=== PATIENT | male | born 1935 | race Caucasian/White ===

== ENCOUNTER 2020-05-16 11:27 | Inpatient (IN) | payer OTHER, MEDICAID, SELFPAY ==
[~2020-05-16] VITALS: Ht 167.6 cm; Wt 79.4 kg
--- NOTE | 2020-05-16 11:27 | NUR ---
PATIENT BIBA ALS TO ER BED 05
--- NOTE | 2020-05-16 11:46 | NUR ---
ERMD MADE AWARE OF PERSISTENT HYPOTENSION, 67/24, 76/28, 69/24, 71/32.
--- NOTE | 2020-05-16 11:50 | NUR ---
85 YO M FROM [facility] [place] WITH C/C OF 2 LARGE BLOOD CLOTS IN STOOL AT 0900 THIS MORNING. ERMD PERFORMED GUIAC TEST AT BEDSIDE IMMEDIATELY AND NOTED TRACE AMOUNTS OF BLOOD. PT VSS. DENIES N/V, BUT HAS ACTIVE DIARRHEA AND REPORTS OF +CDIFF, AFEBRILE. PT PLACED ON INSPECTOR GRAIN MILL PRODUCTS. BED LOCKED AND IN LOWEST POSITION. SIDE RAILS X2. MED HX: ESRD (SHUNT ON L UPPER ARM), CDIFF, HX OF PRIOR COVID +, STAGE 4 [facility], SEE PAPER CHART FOR FURTHER HX NKA
--- NOTE | 2020-05-16 12:00 | NUR ---
CHARISSED MADE AWARE THAT PT IS ANURIC DUE TO ESRD, UNABLE TO OBTAIN UA
[2020-05-16] MEDS ORDERED: NACL 0.9% 1,000 ML IV ONE ×2 (12:10→14:05)
--- NOTE | 2020-05-16 12:25 | NUR ---
DELAY IN IV DUE TO PT HARD STICK. LABS COLLECTED AND SENT TO LAB. BOLUS INITIATED
[2020-05-16 12:43] LABS: BASOPHILS # (AUTO) 0.1 K/uL (0.00-0.22); BASOPHILS % (AUTO) 0.6 % (0.0-2.0); EOSINOPHILS # (AUTO) 0.8 K/uL (0-0.4); LYMPHOCYTES # (AUTO) 1.3 K/uL (2.0-11.5); LYMPHOCYTES % (AUTO) 8.2 % (20.5-51.1); MEAN CORPUSCULAR HEMOGLOBIN 29 pg (27-31); MEAN CORPUSCULAR HGB CONC 32 g/dL (33-37); MEAN CORPUSCULAR VOLUME 91.6 fL (80-94); MONOCYTES # (AUTO) 0.6 K/uL (0.8-1.0); MONOCYTES % (AUTO) 3.9 % (1.7-9.3); NEUTROPHILS # (AUTO) 12.8 K/uL (1.8-7.7); NEUTROPHILS % (AUTO) 82.3 % (42.2-75.2); PLATELET COUNT (AUTO) 318 K/uL (140-450); RED BLOOD CELL COUNT(AUTO) 1.78 MIL/uL (4.20-6.10); RED CELL DISTRIBUTION WIDTH 15.4 % (11.6-13.7); WHITE BLOOD COUNT (AUTO) 15.6 K/uL (4.8-10.8)
--- NOTE | 2020-05-16 12:53 | NUR ---
RAD AT BEDSIDE
[2020-05-16 12:55] LABS: PROTHROMBIN TIME 10.8 secs (10.8-13.4)
[2020-05-16 13:00] LABS: ALBUMIN 1.7 g/dL (3.4-5.0); ANION GAP 14.1 (8-16); ASPARTATE AMINOTRANSFERASE 27 U/L (15-37); CARBON DIOXIDE 27.2 mmol/L (21-32); CHLORIDE 97 mmol/L (98-107); GLUCOSE 128 mg/dL (74-106); POTASSIUM 3.3 mmol/L (3.5-5.1); SODIUM SERUM 135 mmol/L (136-145); TOTAL BILIRUBIN 0.3 mg/dL (0.0-1.0); UREA NITROGEN, BLOOD 41 mg/dL (7-18)
[2020-05-16 13:02] LABS: CREATININE 6.7 mg/dL (0.6-1.3)
[2020-05-16 13:46] LABS: HEMATOCRIT 16.3 % (36-52); HEMOGLOBIN 5.1 g/dL (12.0-18.0)
[2020-05-16] MEDS ORDERED: PIPERACILLIN/TAZOBACTAM 3.375 GM in DEXTROSE 5% 50 ML IV ONE (14:20)
--- NOTE | 2020-05-16 14:20 | NUR ---
CHARISSED MADE AWARE OF PERSISTENT HYPOTENSION. /, 78/18
[2020-05-16] MEDS ORDERED: PIPERACILLIN/TAZOBACTAM 3.375 GM VIAL IV ONE (14:35)
--- NOTE | 2020-05-16 14:45 | NUR ---
CENTRAL LINE TRAY PLACED AT BEDSIDE FOR ERMD TO PLACE DUE TO HYPOTENSION
--- NOTE | 2020-05-16 15:00 | NUR ---
PT CLEANED AND RECTAL TUBE PLACED PER ERMD ORDER. SACRAL/BUTTOCK WOUND PHOTOS TAKEN.
--- NOTE | 2020-05-16 15:10 | NUR ---
ARCELIA CASTLE AND HANNAH MAI AT BEDSIDE PLACING CENTRAL LINE. GEODETIC TECHNICIAN/PULSE OX IN PLACE. BED LOCKED AND IN LOWEST POSITION.
[2020-05-16] MEDS ORDERED: DOCUSATE SODIUM 100 MG GELCAP PO PRN (15:20)
[2020-05-16] MEDS ORDERED: ACETAMINOPHEN 325 MG TAB PO PRN (15:20)
[2020-05-16] MEDS ORDERED: ZOLPIDEM 5 MG TAB PO PRN (15:20)
[2020-05-16] MEDS ORDERED: guaiFENesin DM 200/20 MG-10 ML 10 ML UDC PO PRN (15:20)
[2020-05-16] MEDS ORDERED: HYDROcodone/APAP 7.5/325 MG 1 TAB PO PRN (15:20)
[2020-05-16] MEDS ORDERED: ONDANSETRON 4 MG/2 ML VIAL IM/IVP PRN (15:20)
--- NOTE | 2020-05-16 16:56 | NUR ---
CALLED LAB TO CHECK ON STATUS OF ORDERED PACKED CELLS, STATED BLOOD IS READY TO TRANSFUSE
[2020-05-16] MEDS ORDERED: NOREPINEPHRINE 8 MG in DEXTROSE 5% 250 ML IV PRN (17:05)
--- NOTE | 2020-05-16 17:30 | NUR ---
HOLDING PRN LEVOPHED TO SEE IF BP IMPROVES AFTER BLOOD TRANSFUSION. MADE AWARE.
--- NOTE | 2020-05-16 17:30 | NUR ---
Consent signed per PATIENT agreeing to administration of blood. Blood has been type and crossmatched. Blood sent from blood bank. Information on unit of blood checked against patient wristband at bedside by two nurses. All information matches. Patient or responsible republican informed of potential complications associated with blood transfusion. Informed of possible transfusion reaction symptoms. Aware of need to notify nurse at once of itching, shortness of breath, flushing, feeling of impending doom, or other symptoms not previously present. Vital signs taken within 5 minutes prior to initiation of transfusion. RN will remain with patient for first 15 minutes of transfusion at which time vital signs will be re-assessed.
--- NOTE | 2020-05-16 17:30 | NUR ---
SEE BLOOD TRANSFUSION SHEET FOR TRANSFUSION VS
--- NOTE | 2020-05-16 19:20 | NUR ---
REPORT GIVEN TO ERVIN KUMARI. TRANSFER OF CARE AT THIS TIME.
--- NOTE | 2020-05-16 19:28 | NUR ---
Report received from ERVIN Morrison for continuation of care.
--- NOTE | 2020-05-16 19:45 | NUR ---
BLOOD TRANSFUSION OF FIRST UNIT COMPLETED. NO REACTION NOTED. VSS.
--- NOTE | 2020-05-16 19:55 | NUR ---
SECOND UNIT OF BLOOD PICKED UP FROM LAB AT THIS TIME.
--- NOTE | 2020-05-16 20:12 | NUR ---
Consent signed per patietn agreeing to administration of blood. Blood has been type and crossmatched. Blood sent from blood bank. Information on unit of blood checked against patient wristband at bedside by two nurses. All information matches. Patient or responsible constitution party informed of potential complications associated with blood transfusion. Informed of possible transfusion reaction symptoms. Aware of need to notify nurse at once of itching, shortness of breath, flushing, feeling of impending doom, or other symptoms not previously present. Vital signs taken within 5 minutes prior to initiation of transfusion. RN will remain with patient for first 15 minutes of transfusion at which time vital signs will be re-assessed.
--- NOTE | 2020-05-16 20:22 | NUR ---
DELAY IN ADMINISTERING MEDICATIONS - PT HAVE ONLY 1 IV ACCESS AND BLOOD TRANSFUSION IS RUNNING AT THIS TIME.
[2020-05-16 20:27] LABS: CHOL/HDL RATIO 6.3 (1-4.5); MAGNESIUM 1.9 mg/dL (1.8-2.4)
[2020-05-16 21:00] LABS: PHOSPHORUS 2.9 mg/dL (2.5-4.9)
--- NOTE | 2020-05-16 21:30 | NUR ---
XRAY AT BEDSIDE.
--- NOTE | 2020-05-16 21:46 | NUR ---
PT RESTING LEFT LATERALLY , RR EVEN AND UNLABORED, BED LOCKED AND IN LOWEST POSITION, SIDE RAIL X2 FOR PT SAFETY. NO ACUTE DISTRESS NOTED. VSS.
--- NOTE | 2020-05-16 22:21 | NUR ---
PT RESTING LT LATERALLY , VISIBLE RISE AND FALL OF CHEST, RR EVEN AND UNLABORED. NO ACUTE DISTRESS NOTED. VSS.
[2020-05-16] MEDS ORDERED: SERT50TA PO (22:39)
[2020-05-16] MEDS ORDERED: ASPI-1822 PO (22:39)
[2020-05-16] MEDS ORDERED: ATOR20TA40 PO (22:39)
[2020-05-16] MEDS ORDERED: CARV12.5 PO (22:39)
[2020-05-16] MEDS ORDERED: [UNRECOGNIZED DRUG - CODE] PO (22:39)
[2020-05-16] MEDS ORDERED: LEVO0.0216 PO (22:39)
[2020-05-16] MEDS ORDERED: PANT40EC PO (22:39)
[2020-05-16] MEDS ORDERED: SENN-72 PO (22:39)
[2020-05-16] MEDS ORDERED: MEGE20TA PO (22:39)
[2020-05-16] MEDS ORDERED: CHOL1TAB11 PO (22:39)
[2020-05-16] MEDS ORDERED: FINA5TAB1 PO (22:39)
[2020-05-16] MEDS ORDERED: ATRN INH (22:39)
[2020-05-16] MEDS ORDERED: MULT-1469 PO (22:39)
[2020-05-16] MEDS ORDERED: PIPERACILLIN/TAZOBACTAM 2.25 GM VIAL IV ONE (22:47)
--- NOTE | 2020-05-16 22:50 | NUR ---
BLOOD TRANSFUSION COMPLETED , NO REACTION TO TRANSFUSION. VSS.
[2020-05-16] MEDS: PIPERACILLIN/TAZOBACTAM 2.25 GM in DEXTROSE 5% 50 ML IV SCH (22:59)
[2020-05-16] MEDS: DEXT 5% /NACL 0.9% 1,000 ML IV SCH (23:33)
--- NOTE | 2020-05-16 23:33 | NUR ---
PT RESTING IN BED, LOCKED AND IN LOWEST POSITION , HOB ELEVATED, SIDE RAIL X2. VISIBLE RISE AND FALL OF CHEST. VSS. NO ACUTE DISTRESS NOTED.
--- NOTE | 2020-05-17 00:51 | NUR ---
pt resting in bed, locked and in lowest position ,hob elevated, side rail x2 for pt safety. No acute distress noted. VSS.
--- NOTE | 2020-05-17 02:07 | NUR ---
pt resting in bed, locked and in lowest position, hob elevated , side rail x2 for pt safety. No acute distress noted. vss.
--- NOTE | 2020-05-17 03:05 | NUR ---
PT RESTING IN BED, LOCKED AND IN LOWEST POSITION ,HOB ELEVATED, SIDE RAIL X2. VSS. NO ACUTE DISTRESS.
[2020-05-17] MEDS: DEXT 5% /NACL 0.9% 1,000 ML IV SCH ×2 (03:50→16:22)
--- NOTE | 2020-05-17 04:30 | NUR ---
PT RESTING RT LATERALLY , HOB ELEVATED, SIDE RAIL X2. NO ACUTE DISTRESS NOTED.
--- NOTE | 2020-05-17 05:00 | NUR ---
MRSA SWAB COLLECTED AND WALKED TO LAB.
[2020-05-17] MEDS ORDERED: PIPERACILLIN/TAZOBACTAM 2.25 GM VIAL IV ONE ×3 (05:24→21:52)
[2020-05-17] MEDS: PIPERACILLIN/TAZOBACTAM 2.25 GM in DEXTROSE 5% 50 ML IV SCH ×3 (05:32→21:55)
--- NOTE | 2020-05-17 06:15 | NUR ---
PT RESTING IN BED, LOCKED AND IN LOWEST POSITION, HOB ELEVATED, SIDE RAIL X2 FOR PT SAFETY. NO ACUTE DISTRESS NOTED. VSS.
--- NOTE | 2020-05-17 07:28 | NUR ---
REPORT GIVEN TO ERVIN CRAWLEY FOR TRANSFER OF CARE.
--- NOTE | 2020-05-17 07:30 | NUR ---
RECIEVED REPORT FROM ERVIN KUMARI. TRANSFER OF CARE AT THIS TIME.
[2020-05-17] MEDS: LACTULOSE 20 GM/30 ML UDC PO SCH ×2 (09:00→21:55)
[2020-05-17] MEDS: PANTOPRAZOLE 40 MG TABEC PO SCH (09:00)
[2020-05-17] MEDS: SENNA 8.6 MG TAB PO SCH ×3 (09:00→17:00)
[2020-05-17 09:11] LABS: BASOPHILS # (AUTO) 0.1 K/uL (0.00-0.22); BASOPHILS % (AUTO) 0.6 % (0.0-2.0); EOSINOPHILS # (AUTO) 0.8 K/uL (0-0.4); EOSINOPHILS % (AUTO) 6.5 % (0.0-4.0); HEMATOCRIT 23.4 % (36-52); HEMOGLOBIN 7.6 g/dL (12.0-18.0); LYMPHOCYTES # (AUTO) 0.9 K/uL (2.0-11.5); MEAN CORPUSCULAR HEMOGLOBIN 30 pg (27-31); MEAN CORPUSCULAR HGB CONC 33 g/dL (33-37); MEAN CORPUSCULAR VOLUME 90.6 fL (80-94); MONOCYTES # (AUTO) 0.5 K/uL (0.8-1.0); NEUTROPHILS # (AUTO) 9.8 K/uL (1.8-7.7); PLATELET COUNT (AUTO) 276 K/uL (140-450); RED BLOOD CELL COUNT(AUTO) 2.58 MIL/uL (4.20-6.10); RED CELL DISTRIBUTION WIDTH 14.7 % (11.6-13.7); WHITE BLOOD COUNT (AUTO) 12.1 K/uL (4.8-10.8)
[2020-05-17 09:46] LABS: ANION GAP 16.4 (8-16); CHLORIDE 100 mmol/L (98-107); GLUCOSE 102 mg/dL (74-106); POTASSIUM 3.4 mmol/L (3.5-5.1); SODIUM SERUM 137 mmol/L (136-145); UREA NITROGEN, BLOOD 44 mg/dL (7-18)
[2020-05-17 10:30] LABS: LYMPHOCYTES % (AUTO) 7.7 % (20.5-51.1); NEUTROPHILS % (AUTO) 81.2 % (42.2-75.2)
[2020-05-17 10:37] LABS: CREATININE 7.3 mg/dL (0.6-1.3)
--- NOTE | 2020-05-17 11:22 | NUR ---
ERMD AT BEDSIDE PLACING ULTRA SOUND GUIDED IV
--- NOTE | 2020-05-17 12:00 | NUR ---
PT REPOSITIONED FOR COMFORT TO RIGHT SIDE. ALL PT NEEDS MET AT THIS TIME. BED LOCKED AND IN LOWEST POSITION. MEDICAL BILLING AND CODING INSTRUCTOR/PULSE OX IN PLACE.
--- NOTE | 2020-05-17 13:00 | NUR ---
DR. RIZO MADE AWARE THAT PTS IV INFILTRATED AND UNABLE TO PLACE ANOTHER IV LINE. MULTIPLE ATTEMPTS MADE BY ERMD WITH ULTRASOUND. VERBAL PICC LINE ORDER MADE. DR. RIZO MADE AWARE UNABLE TO GIVE IV POTASSIUM ORDER DUE TO NO IV, GAVE VERBAL ORDER TO GIVE 40 MEQ LIQUID ONCE TODAY.
[2020-05-17] MEDS ORDERED: POTASSIUM CHLORIDE 20% 40 MEQ/15 ML UDC PO SCH (14:00)
--- NOTE | 2020-05-17 14:23 | NUR ---
PICC LINE NURSE AT BEDSIDE PLACING R UPPER ARM MIDLINE
--- NOTE | 2020-05-17 15:02 | NUR ---
CALLED PHARMACY TO OBTAIN PRN POTASSIUM IV
--- NOTE | 2020-05-17 16:00 | NUR ---
PT REPOSITIONED FOR COMFORT TO LEFT SIDE. ALL PT NEEDS MET AT THIS TIME. BED LOCKED AND IN LOWEST POSITION. AUTO BODY MECHANIC APPRENTICE/PULSE OX IN PLACE.
--- NOTE | 2020-05-17 17:00 | NUR ---
DR. RIZO STATES TO DOWNGRADE PT TO TELE DUE TO IMPROVEMENT IN HYPOTENSION AND NOT NEEDING ORDERED LEVOPHED.
[2020-05-17] MEDS: POTASSIUM CHLORIDE 40 MEQ, LIDOCAINE MPF 1% 25 MG in NACL 0.9% 250 ML IV PRN (17:05)
--- NOTE | 2020-05-17 18:00 | NUR ---
PT REPOSITIONED FOR COMFORT TO RIGHT SIDE. ALL PT NEEDS MET AT THIS TIME. BED LOCKED AND IN LOWEST POSITION. LUMBER CHAIN OFFBEARER/PULSE OX IN PLACE.
--- NOTE | 2020-05-17 19:27 | NUR ---
REPORT GIVEN TO ERVIN GAUTAM. TRANSFER OF CARE AT THIS TIME.
--- NOTE | 2020-05-17 19:30 | NUR ---
RECEIVED REPORT FROM DENISA MUELLER
--- NOTE | 2020-05-17 20:00 | NUR ---
PT RESTING IN BED, REMAINS ON BEDSIDE MONITOR. V/S REMAIN WNL
--- NOTE | 2020-05-17 20:40 | NUR ---
PT ARRIVED FROM ED TO UNIT VIA GURNEY. PT AAOX4 AND ABLE TO MAKE NEEDS KNOWN, CALM AND COOPERATIVE TO CARE. RESPIRATIONS EVEN AND UNLABORED TO ROOM AIR. ABDOMEN IS SOFT AND NON-TENDER, RECTAL TUBE IN PLACE. SKIN IS WARM AND DRY. PT WITH PRESSURE ULCER ON SACRUM AND BUTTOCKS, DRESSING DRY AND INTACT. PT WITH RIGHT UPPER ARM MIDLINE IN PLACE. PT ALSO WITH LEFT ARM AV SHUNT, ARM PRECAUTION IN PLACE. PT DENIES ANY PAIN OR DISCOMFORT AT THIS TIME. NO REQUESTS MADE. PT KEPT COMFORTABLE. VS TAKEN, MRSA SWAB COLLECTED. PT WELCOMED AND ORIENTED TO ROOM. PT KEPT COMFORTABLE. SAFETY MEASURES IN PLACE, CALL LIGHT WITHIN REACH, WILL CONTINUE TO MONITOR.
--- NOTE | 2020-05-17 20:50 | NUR ---
Patient will be admitted to care of DR RIZO. Admited to TELE. Will go to room 107A. Belongings list completed. Report to SAFIA MUELLER.
[2020-05-17 23:00] VITALS: BP 159/68
--- NOTE | 2020-05-18 00:06 | NUR ---
VS STABLE. PERINEAL CARE DONE WITH SUPERVISOR PIG MACHINE. WOUND CARE DONE WELL. PT TOLERATE WELL. PT TURNED WELL. PT KEPT COMFORTABLE. SAFETY MEASURES IN PLACE. CALL LIGHT WITHIN REACH. WILL CONTINUE TO MONITOR.
[2020-05-18 00:43] VITALS: BP 133/55
--- NOTE | 2020-05-18 00:45 | NUR ---
PROVIDED WOUND CARE Addendum: 05/19/20 at 5766 by Eloy Pineda RN WRONG TIME
--- NOTE | 2020-05-18 02:17 | NUR ---
RECEIVED REPORT FROM SAFIA FOR CONTINUITY OF CARE. PATIENT IS SLEEPING AROUSABLE BY NAME AND TOUCHED. RESPIRATION EVEN UNLABORED ON ROOM AIR. NO DISTRESS NOTED. SKIN IS WARM AND DRY. PATIENT HAS A PRESSURE ULCER ON THE SACRAL AREA. NADIRA MIDLINE NOTED PATENT AND INTACT. RECTAL TUBE NOTED DRAINING YELLOWISH GREEN LIQUID STOOL. ALL SAFETY MEASURES IN PLACE. BED IS AT LOW POSITION. CALL LIGHT WITHIN REACH. WILL CONTINUE TO MONITOR.
--- NOTE | 2020-05-18 03:01 | NUR ---
MADE ROUNDS. PATIENT SLEEPING RESPIRATION EVEN UNLABORED ON ROOM AIR. NO DISTRESS NOTED. WILL CONTINUE TO MONITOR.
[2020-05-18 04:00] VITALS: BP 155/70
--- NOTE | 2020-05-18 05:03 | NUR ---
VS STABLE. PERINEAL CARE, CATHETER CARE DONE. PT TURNED AFTERWARDS. PT TOLERATED CARE PROVIDED. PT NOT IN DISTRESS. SAFETY MEASURES IN PLACE. CALL LIGHT WITHIN REACH. WILL CONTINUE TO MONITOR.
[2020-05-18] MEDS: DEXT 5% /NACL 0.9% 1,000 ML IV SCH ×2 (05:42→17:09)
[2020-05-18] MEDS: PIPERACILLIN/TAZOBACTAM 2.25 GM in DEXTROSE 5% 50 ML IV SCH ×3 (05:43→21:21)
[2020-05-18] MEDS ORDERED: PIPERACILLIN/TAZOBACTAM 2.25 GM VIAL IV ONE (05:45)
--- NOTE | 2020-05-18 07:51 | NUR ---
ENDORSED TO DAY SHIFT NURSE FOR CONTINUITY OF CARE
--- NOTE | 2020-05-18 08:32 | NUR ---
RECIEVED PATEINT RESTING COMFORTABLY, PRESENTS CALM AND COOPERATIVE, NO S/SX OF PAIN OR DISCOMFORT. RESPIRATIONS ARE NON-LABORED. SKIN IS CLEAN, WARM AND DRY TO TOUCH. IV ACCESS IS PATENT, DRY AND INTACT. BED IS LOCKED IN LOWEST POSITION, CALL LIGHT IN REACH. NURSE WILL MONITOR FOR CHANGES IN STATUS.
[2020-05-18] MEDS: LACTULOSE 20 GM/30 ML UDC PO SCH ×2 (08:47→21:21)
[2020-05-18] MEDS: SENNA 8.6 MG TAB PO SCH ×3 (08:50→17:00)
[2020-05-18] MEDS: PANTOPRAZOLE 40 MG TABEC PO SCH (08:50)
--- NOTE | 2020-05-18 08:51 | NUR ---
PATIENT HAS BEEN SCREENED AND CATEGORIZED HIGH NUTRITION RISK. PATIENT WILL BE SEEN WITHIN 1-2 DAYS OF ADMISSION. 05/18/[address]
[2020-05-18 09:00] LABS: ANION GAP 18.6 (8-16); CHLORIDE 103 mmol/L (98-107); GLUCOSE 92 mg/dL (74-106); POTASSIUM 3.6 mmol/L (3.5-5.1); SODIUM SERUM 139 mmol/L (136-145); UREA NITROGEN, BLOOD 47 mg/dL (7-18)
[2020-05-18 09:07] LABS: T4 (THYROXINE) 3.7 ug/dL (4.5-12.0)
[2020-05-18 09:23] LABS: BASOPHILS # (AUTO) 0.1 K/uL (0.00-0.22); BASOPHILS % (AUTO) 0.9 % (0.0-2.0); EOSINOPHILS # (AUTO) 0.6 K/uL (0-0.4); EOSINOPHILS % (AUTO) 4.7 % (0.0-4.0); HEMATOCRIT 21.3 % (36-52); HEMOGLOBIN 7.2 g/dL (12.0-18.0); LYMPHOCYTES # (AUTO) 0.9 K/uL (2.0-11.5); LYMPHOCYTES % (AUTO) 6.9 % (20.5-51.1); MEAN CORPUSCULAR HEMOGLOBIN 30 pg (27-31); MEAN CORPUSCULAR HGB CONC 34 g/dL (33-37); MEAN CORPUSCULAR VOLUME 89.7 fL (80-94); MONOCYTES # (AUTO) 0.5 K/uL (0.8-1.0); NEUTROPHILS # (AUTO) 11.4 K/uL (1.8-7.7); NEUTROPHILS % (AUTO) 83.5 % (42.2-75.2); PLATELET COUNT (AUTO) 308 K/uL (140-450); RED BLOOD CELL COUNT(AUTO) 2.38 MIL/uL (4.20-6.10); RED CELL DISTRIBUTION WIDTH 14.9 % (11.6-13.7); WHITE BLOOD COUNT (AUTO) 13.7 K/uL (4.8-10.8)
[2020-05-18 09:47] LABS: CREATININE 8.2 mg/dL (0.6-1.3)
--- NOTE | 2020-05-18 12:08 | NUR ---
PATIENT RESTING COMFORTABLY, NO S/SX OF PAIN OR DISCOMFORT. REPIRATIONS ARE NON-LABORED. SKIN IS CLEAN, WARM AND DRY TO TOUCH. IV ACCESS IS PATENT, DRY AND INTACT. BED IS LOCKED IN LOWEST POSITION, CALL LIGHT IN REACH. NURSE WILL CONTINUE TO MONITOR FOR CHANGES IN STATUS.
--- NOTE | 2020-05-18 12:21 | NUR ---
SOCIAL WORK NOTE: Patient's Orientation Unable To Assess Information Provided By RANDY COX - KISHORE Comments SW WAS UNABLE TO MEET PATIENT AT BEDSIDE DUE TO MEDICAL CONDITION. SW COMPLETED ASSESSMENT WITH PATIENT'S SON. Dividing Machine Operator Helper, Realtionship and Phone Number RANDY NOVAK [phone] Healthcare Power of Post Anesthesia Room Nurse No Does Patient Have a POLST No Identifying Problems No Social Work Triggers Is A Social Work Consult Needed No Mandate Report Filed No Explanation Of Identifying Problems PATIENT IS AN 85-YEAR-OLD MALE ADMITTED FOR GI BLEED, SEPSIS, AND ANEMIA. PATIENT HAS PMHX OF HYPERTENSION, ESRD ON DIALYSIS. PATIENT IS A SKILLED PATIENT AT [facility] [place] BUT RESIDES AT [address] [facility] [place] [address]. Admitted From Long-Term Facility Long-Term Facility [facility] - [phone] Pre-Admission Level Of Functioning Status Total Care Prior Resources/Services Used In Last 12 Months SNF Rehab/Skilled Prior Resources/Service Comments PATIENT IS SKILLED AND ON A BED HOLD. Prior DME Wheelchair Dialysis Hemodialysis Name And Phone Number of Dialysis Facility [facility] M W ESRD Outpatient Time 1400 Living Situation Lives With Family House Other Living Situation/Comment PATIENT RESIDES WITH FAMILY AT [address] [facility] [place] [place] [address] Home Support No Caregiver Issues Financial Issues No Known Financial Issue Referral To The Financial Counselor Needed No Factors/Needs No D/C Needs Identified Pt/Rep Participated In Discharge Plan Yes Patient/Family Agress With Discharge Plan Yes Discharge Plan Comments TENTATIVE DISCHARGE PLAN IS FOR PATIENT TO RETURN TO [facility] [place]. DC Plan Status Initiated
--- NOTE | 2020-05-18 12:38 | NUR ---
WOUND CARE EVALUATION NOTE: PT. ADMITTED WITH GI BLEEDING AND SACRAL COCCYX STAGE 4 PRESSURE INJURY. PT. IS AAX3 FOLLOW DIRECTIONS TO TURN AND REPOSITION, RECTAL TUBE IN PLACE WITH MODERATE AMOUNT STOOL OUTPUT OBSERVED. SKIN IS WARM AND DRY, BLE HAIR NO GROWTH, NO EDEMA. DORSAL PEDAL PULSES PRESENT AND NORMAL. CAPILLARY REFILLED < 2 SEC. X 10 TOES. -SACRALCOCCYX PRESSURE INJURY STAGE 4, WOUND BED [id number] 30% SOFT YELLOW SLOUGH TISSUE WITH 70% GRANULATING TISSUE, MODERATE AMOUNT SEROUS DRAINAGE, NO ODOR, BRENDA WOUND SKIN NEWLY HEALING SCARS -RIGHT AND LEFT INNER BUTTOCKS MAD SKIN DENUDED, MULTIPLE SUPERFICIAL EROSIONS -BILATERAL HEELS BLANCHABLE REDNESS RECOMMENDATIONS: -APPLY THIN LAYER OF Z GUARD TO R/L INNER BUTTOCKS BID AND PRN IF SOILING -CLEANSE SACRALCOCCYX WITH WOUND CLEANSING SOLUTION, PACK WOUND WITH ALGINATE DRESSING AND APPLY THIN LAYER Z-GUARD TO PER-WOUND SKIN COVER WITH DRY DRESSING QD AND PRN IF SOILING -APPLY HEEL PROTECTORS TO BOTH HEELS AT ALL TIMES -OFFLOAD BILATERAL HEELS BY PLACING PILLOWS UNDER CALVES UNLESS OTHERWISE CONTRAINDICATED -PRESSURE REDISTRIBUTION SURFACE THERAPY -TURN AND REPOSITION Q2H, OFFLOAD SACRALCOCCYX AND BUTTOCKS BY TURNING RIGHT AND LEFT -CONTINUE TO FOLLOW RD RECOMMENDATIONS ALL ABOVE RECOMMENDATIONS DISCUSSED WITH PRIMARY RN. PLEASE CONTACT WOUND CARE NURSE FOR ANY QUESTION AND CHANGE OF WOUND CONDITION
[2020-05-18] MEDS: Z-GUARD PASTE TP SCH (13:00)
[2020-05-18] MEDS: ALGINATE DRESSING MC SCH (13:00)
--- NOTE | 2020-05-18 15:50 | NUR ---
05/18/20 RD INITIAL ASSESSMENT COMPLETED PLEASE REFER TO NUTRITION ASSESSMENT UNDER CARE ACTIVITY FOR ESTIMATED NUTRITIONAL NEEDS. 1. CONTINUE NPO 2. RECOMMEND VITAMIN C 500 MG AND ZINC 220 MG DAILY X 14 DAYS FOR WOUND HEALING 3. IF/WHEN MEDICALLY STABLE ADVANCE DIET TOLERATED 4. RD TO FOLLOW-UP 2-3 DAYS, HIGH RISK MANAS GREWAL RD
[2020-05-18 18:35] VITALS: BP 152/60
--- NOTE | 2020-05-18 19:05 | NUR ---
PATIENT RESTING COMFORTABLY, NO C/O PAIN OR DISCOMFORT. RESPIRATIONS ARE NON-LABORED. SKIN IS CLEAN WARM AND DRY TO TOUCH. IV ACCESS IS PATENT, DRY AND INTACT. BED IS LOCKED IN LOWEST POSITION, CALL LIGHT IN REACH. PATIENT ENDORSED TO CURTAIN WORKER NURSE.
--- NOTE | 2020-05-18 19:35 | NUR ---
RECEIVED BEDSIDE REPORT FROM DAY KEN JORDAN. PATIENT IS AWAKE AND ALERT. RESPIRATION EVEN UNLABORED ON ROOM AIR. NO DISTRESS NOTED. SKIN IS WARM AND DRY. SACRAL ULCER NOTED. RIGHT UPPER ARM MIDLINE NOTED PATENT AND INTACT. RECTAL TUBE NOTED DRAINING GREENISH SOFT TO LIQUID STOOL NOTED. PLAN OF CARE WAS DISCUSSED ALL SAFETY MEASURES IN PLACE. BED IS AT LOW POSITION. CALL LIGHT WITHIN REACH. WILL CONTINUE TO MONITOR.
[2020-05-18 20:00] VITALS: BP 161/52
--- NOTE | 2020-05-18 21:20 | NUR ---
ALL SCHEDULED MEDS WERE GIVEN PER ORDER. WILL CONTINUE TO MONITOR.
[2020-05-18] MEDS ORDERED: SENNA 8.6 MG TAB PO SCH (22:00)
[2020-05-18] MEDS ORDERED: MAGNESIUM CITRATE 300 ML BTL PO SCH (22:00)
--- NOTE | 2020-05-18 22:40 | NUR ---
ADMINISTER CITROMA AND SENNA FOR BOWEL PREP PROCEDURE PER DR. HUFF ORDER
[2020-05-19] VITALS: BP 130/62
--- NOTE | 2020-05-19 00:45 | NUR ---
PROVIDED WOUND CARE
[2020-05-19] MEDS: Z-GUARD PASTE TP SCH ×2 (01:00→15:00)
--- NOTE | 2020-05-19 01:24 | NUR ---
MADE ROUNDS. PATIENT IS AWAKE RESPIRATION EVEN UNLABORED ON ROOM AIR. NO DISTRESS NOTED. WILL CONTINUE TO MONITOR
[2020-05-19 04:20] VITALS: BP 165/58
--- NOTE | 2020-05-19 05:18 | NUR ---
PATIENT ONLY DRINK HALF OF CITROMA. STOOL COLOR BROWNISH YELLOW SOFT TO LIQUID TEXTURE. ENCOURAGED PATIENT TO DRINK IT ALL. PATIENT REFUSED. EDUCATED THE PURPOSE STILL REFUSED. WILL NOTIFY DOCTOR.
[2020-05-19] MEDS: PIPERACILLIN/TAZOBACTAM 2.25 GM in DEXTROSE 5% 50 ML IV SCH ×3 (05:48→21:10)
[2020-05-19] MEDS: DEXT 5% /NACL 0.9% 1,000 ML IV SCH (05:50)
--- NOTE | 2020-05-19 06:00 | NUR ---
ASK PATIENT AGAIN REGARDING CITROMA. PATIENT FINALLY AGREED TO DRINK THE MEDICATION. WILL CONTINUE TO MONITOR
--- NOTE | 2020-05-19 07:11 | NUR ---
ENDORSED PATIENT TO DAY SHIFT NURSE FOR CONTINUITY OF CARE.
--- NOTE | 2020-05-19 07:35 | NUR ---
RECEIVED PATIENT IN BED RESTING COMFORTABLY, PATIENT PRESENTS CALM AND COOPERATIVE. NO S/SX OF PAIN OR DISCOMFORT OBSERVED NOR REPORTED. RESPIRATIONS ARE NON-LABORED. SKIN IS CLEAN, WARM AND DRY TO TOUCH. IV ACCESS IS PATENT, DRY AND INTACT. RECTAL TUBE IS SECURED. PATIENT IS NPO STATUS. BED IS LOCKED IN LOWEST POSITION, CALL LIGHT IN REACH. NURSE WILL CONTINUE TO MONITOR FOR CHANGES IN STATUS
[2020-05-19] MEDS: LACTULOSE 20 GM/30 ML UDC PO SCH (08:04)
[2020-05-19] MEDS: PANTOPRAZOLE 40 MG TABEC PO SCH (08:05)
[2020-05-19] MEDS: SENNA 8.6 MG TAB PO SCH ×2 (08:05→12:00)
[2020-05-19 08:36] LABS: BASOPHILS # (AUTO) 0.2 K/uL (0.00-0.22); BASOPHILS % (AUTO) 1.3 % (0.0-2.0); EOSINOPHILS # (AUTO) 0.6 K/uL (0-0.4); EOSINOPHILS % (AUTO) 4.9 % (0.0-4.0); HEMATOCRIT 21.7 % (36-52); HEMOGLOBIN 7.1 g/dL (12.0-18.0); LYMPHOCYTES # (AUTO) 1.1 K/uL (2.0-11.5); LYMPHOCYTES % (AUTO) 9.6 % (20.5-51.1); MEAN CORPUSCULAR HEMOGLOBIN 30 pg (27-31); MEAN CORPUSCULAR HGB CONC 33 g/dL (33-37); MEAN CORPUSCULAR VOLUME 90.6 fL (80-94); MONOCYTES # (AUTO) 0.6 K/uL (0.8-1.0); MONOCYTES % (AUTO) 4.9 % (1.7-9.3); NEUTROPHILS % (AUTO) 79.3 % (42.2-75.2); PLATELET COUNT (AUTO) 327 K/uL (140-450); RED BLOOD CELL COUNT(AUTO) 2.39 MIL/uL (4.20-6.10); WHITE BLOOD COUNT (AUTO) 11.4 K/uL (4.8-10.8)
[2020-05-19 08:37] LABS: ANION GAP 19.8 (8-16); CARBON DIOXIDE 18.4 mmol/L (21-32); CHLORIDE 105 mmol/L (98-107); GLUCOSE 89 mg/dL (74-106); POTASSIUM 3.2 mmol/L (3.5-5.1); SODIUM SERUM 140 mmol/L (136-145); UREA NITROGEN, BLOOD 49 mg/dL (7-18)
[2020-05-19] MEDS ORDERED: MAGNESIUM CITRATE 300 ML BTL PO SCH (08:50)
[2020-05-19 09:54] VITALS: BP 170/60
[2020-05-19 10:04] LABS: CREATININE 9.4 mg/dL (0.6-1.3)
--- NOTE | 2020-05-19 11:09 | NUR ---
NURSE NOTIFIED:MD DARRIUS REGARDING PAtients creatine level=9.4, k+ =3.0. nurse awaiting follow up orders.
--- NOTE | 2020-05-19 11:20 | NUR ---
NURSE NOTIFIED PHARMACY REGARDING PRN ORDER FOR k+, PER ORDER, NURSE INFORMED DELIVERY #[id number].
--- NOTE | 2020-05-19 12:07 | NUR ---
PATIENT RESTING COMFORTABLY, NO S/SX OF PAIN OR DISCOMFORT, RESPIRATIONS ARE NON-LABORED. SKIN IS CLEAN, WARM AND DRY TO TOUCH. IV ACCESS IS PATENT, DRY AND INTACT, BED IS LOCKED IN LOWEST POSITION, CALL LIGHT IN REACH. NURSE WILL CONTINUE TO MONITOR FOR CHANGES IN STATUS.
[2020-05-19] MEDS ORDERED: fentaNYL citrate 0.05 MG/ML VIAL ONE (13:12)
[2020-05-19] MEDS ORDERED: MIDAZOLAM 5 MG/5 ML VIAL ONE (13:12)
[2020-05-19] MEDS ORDERED: diphenhydrAMINE 50 MG/ML VIAL ONE (13:12)
--- NOTE | 2020-05-19 13:41 | NUR ---
PATIENT OFF UNIT FOR PROCEDURE. CONSENTS FOR COLONOSCOPY/EGD IN CHART.
[2020-05-19] MEDS ORDERED: MIDAZOLAM 2 MG/2 ML VIAL IVP ONE (15:25)
[2020-05-19] MEDS ORDERED: fentaNYL citrate 0.05 MG/ML VIAL IVP ONE (15:25)
[2020-05-19] MEDS: POTASSIUM CHLORIDE 40 MEQ, LIDOCAINE MPF 1% 25 MG in NACL 0.9% 250 ML IV PRN (15:26)
--- NOTE | 2020-05-19 16:27 | NUR ---
Patient resting comfortably, no S/sx of pain or discomfort. Respirations are non-labored. Skin is clean, warm and dry. Iv access is patent, dry and intact. Bed is locked in lowest position, call light in reach. nurse will continue to monitor for changes in status.
[2020-05-19] MEDS: MESALAMINE 400 MG CAPSULE.DR PO SCH (16:58)
[2020-05-19] MEDS: FERROUS SULFATE 325 MG TABEC PO SCH (16:59)
[2020-05-19] MEDS ORDERED: MESALAMINE 250 MG CAPER PO SCH (17:00)
[2020-05-19 17:46] VITALS: BP 166/66
--- NOTE | 2020-05-19 19:30 | NUR ---
RECEIVED BEDSIDE REPORT FROM DAY REGISTRY. PATIENT IS AWAKE AND ALERTX2. RESPIRATION EVEN UNLABORED ON ROOM AIR. NO DISTRESS NOTED. SKIN IS WARM AND DRY. SACRAL ULCER NOTED DRESSING IS C/D/I. RIGHT UPPER ARM MIDLINE NOTED PATENT AND INTACT. C/C GI BLEED. DIARRHEA. PLAN OF CARE WAS DISCUSSED ALL SAFETY MEASURES IN PLACE. BED IS AT LOW POSITION. CALL LIGHT WITHIN REACH. WILL CONTINUE TO MONITOR.
[2020-05-19] MEDS: ALGINATE DRESSING MC SCH (19:32)
[2020-05-19 20:00] VITALS: BP 172/51
[2020-05-19] MEDS: HYDROCORTISONE SUPPOSITORY 25 MG SUPP RC SCH (21:14)
--- NOTE | 2020-05-19 21:14 | NUR ---
VSS. RENATE MEDICATIONS GIVEN PER ORDERS. PT WAS CLEANED AND REPOSITION WITH ASSISTANCE OF BOATWRIGHT. ALL NEEDS MET. CALL LIGHT IS WITHIN REACH.
--- NOTE | 2020-05-20 | NUR ---
PT WAS CLEANED AND REPOSITION WITH ASSISTANCE OF COMPREHENSIVE ADVISOR. PT TOLERATED WELL. ALL SAFETY MEASURES ARE IN PLACE. CALL LIGHT IS WITHIN REACH.
[2020-05-20] MEDS: Z-GUARD PASTE TP SCH ×2 (01:43→13:08)
--- NOTE | 2020-05-20 02:00 | NUR ---
ROUNDS MADE. PT IS AWAKE DENIES ANY DISCOMFORT. PT ASKING IF HIS FRIEND IS HERE PER PT HE HEARD HIM CALLING OUTSIDE THE ROOM. REORIENTED PT TO ROOM, STAFF, AND CALL LIGHT. PT IS EASILY REDIRECTED. SAFETY MEASURES ARE IN PLACE. CALL LIGHT IS WITHIN REACH.
[2020-05-20 04:00] VITALS: BP 176/68
[2020-05-20] MEDS: PIPERACILLIN/TAZOBACTAM 2.25 GM in DEXTROSE 5% 50 ML IV SCH ×2 (04:21→13:07)
--- NOTE | 2020-05-20 04:30 | NUR ---
PT B/P ELEVATED 176/68 HR 78 PAGED VENEER CLIPPER MD. PT WITH LARGE DARK LIQUID BM. PT WAS CLEANED WITH ASSISTANCE OF DRAIN TILE MACHINE OPERATOR. DRESSING WAS CHANGED D/T SOILED FROM BM. PT WITH MINIMAL DRAINAGE ON DRESSING ABOUT 2X2 OF YELLOW/PINK DRAINAGE. WOUND CLEAN WITH CLEANING SPRAY AND PACKED WITH ALIGNATE DRESSING AND COVER WITH OPTIFOAM. PT TOLERATED WELL. ALL NEEDS MET. CALL LIGHT IS WITHIN REACH.
[2020-05-20] MEDS ORDERED: lisinopriL 10 MG TAB PO SCH (05:40)
--- NOTE | 2020-05-20 06:07 | NUR ---
ADMINISTERED ONE TIME ORDER OF LISINOPRIL 10MG PO WILL REASSESS B/P. NEW ORDER FOR COREG 12.5 BID. ALL NEEDS MET. CALL LIGHT IS WITHIN REACH.
[2020-05-20 07:09] VITALS: BP 168/69
--- NOTE | 2020-05-20 07:30 | NUR ---
BEDSIDE REPORT GIVEN PT ENDORSED IN STABLE CONDITION.
--- NOTE | 2020-05-20 07:57 | NUR ---
RECEIVED PATIENT IN BED RESTING COMFORTABLY, PRESENTS CALM AND COOPERATIVE. ABLE TO EXPRESS NEEDS. NO C/O PAIN OR DISCOMFORT. RESPIRATIONS ARE NON-LABORED. SKIN IS CLEAN, WARM AND DRY TO TOUCH. IV ACCESS IS PATENT, DRY AND INTACT. BED IS LOCKED IN LOWEST POSITION, CALL LIGHT IN REACH.
[2020-05-20 08:00] VITALS: BP 183/58
[2020-05-20] MEDS: FERROUS SULFATE 325 MG TABEC PO SCH ×2 (08:09→17:00)
[2020-05-20] MEDS: MESALAMINE 400 MG CAPSULE.DR PO SCH ×3 (08:11→17:00)
[2020-05-20] MEDS: HYDROCORTISONE SUPPOSITORY 25 MG SUPP RC SCH (08:12)
[2020-05-20] MEDS ORDERED: CHLORHEXADINE GLUC 2% CLOTH TP SCH (09:00)
[2020-05-20] MEDS ORDERED: FOLIC ACID 1 MG TAB PO SCH (09:00)
[2020-05-20] MEDS ORDERED: carvediloL 12.5 MG TAB PO SCH (09:00)
[2020-05-20] MEDS ORDERED: MUPIROCIN CA NASAL 2% 1GM TUBE NS SCH (09:00)
[2020-05-20 09:05] LABS: HEMATOCRIT 21.1 % (36-52); MEAN CORPUSCULAR HEMOGLOBIN 30 pg (27-31); MEAN CORPUSCULAR HGB CONC 33 g/dL (33-37); MEAN CORPUSCULAR VOLUME 90.6 fL (80-94); PLATELET COUNT (AUTO) 331 K/uL (140-450); RED BLOOD CELL COUNT(AUTO) 2.33 MIL/uL (4.20-6.10); RED CELL DISTRIBUTION WIDTH 15.3 % (11.6-13.7); WHITE BLOOD COUNT (AUTO) 9.1 K/uL (4.8-10.8)
[2020-05-20 09:12] LABS: ANION GAP 25.3 (8-16); CARBON DIOXIDE 16.5 mmol/L (21-32); CHLORIDE 104 mmol/L (98-107); GLUCOSE 88 mg/dL (74-106); POTASSIUM 3.8 mmol/L (3.5-5.1); SODIUM SERUM 142 mmol/L (136-145); UREA NITROGEN, BLOOD 54 mg/dL (7-18)
[2020-05-20 10:14] LABS: BASOPHILS % (MANUAL) 1 % (0-2); EOSINOPHILS % (MANUAL) 8 % (0-4); MONOCYTES % (MANUAL) 5 % (5-12)
[2020-05-20 10:15] LABS: LYMPHOCYTES % (MANUAL) 12 % (20-46)
[2020-05-20 10:20] LABS: CREATININE 10.1 mg/dL (0.6-1.3)
--- NOTE | 2020-05-20 11:16 | NUR ---
CONSENT FOR HD OBTAINED FROM SON: RANDY SEVILLA , CO-SIGN WITNESS CHARGE NURSE, PLACED IN CHART.
--- NOTE | 2020-05-20 11:17 | NUR ---
PATIENT UNDERGOING HD.
--- NOTE | 2020-05-20 12:21 | NUR ---
PATIENT IN BED RESTING COMFORTABLY, UNDER-GOING HD, PATIENT PRESENTS CALM AND COOPERATIVE. ABLE TO EXPRESS NEEDS. NO C/O PAIN OR DISCOMFORT. RESPIRATIONS ARE NON-LABORED. SKIN IS CLEAN, WARM AND DRY TO TOUCH. IV ACCESS IS PATENT, DRY AND INTACT. WINTERS PATENT, DRAINING CLEAR YELLOW URINE BY WAY OF GRAVITY/ BED IS LOCKED IN LOWEST POSITION, CALL LIGHT IN REACH. Addendum: 05/20/20 at 1226 by Agency 04 RN RN PATIENT IN BED RESTING COMFORTABLY, PRESENTS CALM AND COOPERATIVE. ABLE TO EXPRESS NEEDS. NO C/O PAIN OR DISCOMFORT. RESPIRATIONS ARE NON-LABORED. SKIN IS CLEAN, WARM AND DRY TO TOUCH. IV ACCESS IS PATENT, DRY AND INTACT.BED IS LOCKED IN LOWEST POSITION, CALL LIGHT IN REACH.
[2020-05-20 12:57] VITALS: BP 133/68
[2020-05-20] MEDS: ALGINATE DRESSING MC SCH (13:07)
[2020-05-20] MEDS ORDERED: FER325 PO (13:57)
[2020-05-20] MEDS ORDERED: CHLO118S2 TP (13:57)
[2020-05-20] MEDS ORDERED: MUPI2CRE22 NS (13:57)
[2020-05-20] MEDS ORDERED: PIPE50SO5 IV (13:57)
--- NOTE | 2020-05-20 14:57 | NUR ---
DC LEAD IOS DEVELOPER: PATIENT WILL DC TODAY BACK TO [facility] [place]. FAXED CLINICALS, SPOKE TO MICHELLE WAITING ON BED NUMBER Addendum: 05/20/20 at 1557 by Caryn Craig CM DC LEAD IOS DEVELOPER: PER MICHELLE PATIENT WILL GO TO ROOM [address] UNDER [address] DENNIS. PER MICHELLE THEY WILL ACCEPT THE BILL FOR TRANSPORT. SET UP TRANSPORTATION WITH [employer] [phone] OR [phone]. INSPECTOR SUBASSEMBLIES TIME IS 7:00 PM NOTIFIED ERVIN PIMENTEL AT [facility] [place]. Addendum: 05/20/20 at 1559 by Caryn Craig CM DC LEAD IOS DEVELOPER: TRIED CALLING PATIENTS RANDY MILLER [phone] TO NOTIFY HIM THAT PATIENT WILL BE DISCHARGED. NO ANSWER BUT LEFT A VOICEMAIL.
--- NOTE | 2020-05-20 18:53 | NUR ---
nurse made two attempts to give report to receiving facility @[phone], placed on hold greater than 15min, will endorse to cutter plastics rolls nurse for further follow up.
--- NOTE | 2020-05-20 18:55 | NUR ---
Patient resting comfortably, no c/o pain or discomfort. Respirations are non-labored. Skin is clean, warm and dry to touch. IV access is patent, dry and intact. Bed is locked in lowest position, call light in reach. Patient endorsed to overnight babysitter nurse for continue care.
--- NOTE | 2020-05-20 19:09 | NUR ---
Report given to [facility] Tommy conrad RN, patient ready for transport with follow up/discharge instructions, patient ready for transport with all personal belongings.
== END 2020-05-20 19:25 | DRG 871 ==
LOC: MED 11:27 → MTU 14:11
PROVIDERS: ADMIT Family Medicine; ATTEND Family Medicine
PROC: 30233N1 Transfusion of Nonautologous Red Blood Cells into Peripheral Vein, Percutaneous Approach (ICD-10-PCS; 2020-05-16)
PROC: 05HY33Z Insertion of Infusion Device into Upper Vein, Percutaneous Approach (ICD-10-PCS; 2020-05-17)
PROC: 5A1D70Z Performance of Urinary Filtration, Intermittent, Less than 6 Hours Per Day (ICD-10-PCS; 2020-05-18)
PROC: 0DBB8ZX Excision of Ileum, Via Natural or Artificial Opening Endoscopic, Diagnostic (ICD-10-PCS; 2020-05-19)
PROC: 0DBF8ZX Excision of Right Large Intestine, Via Natural or Artificial Opening Endoscopic, Diagnostic (ICD-10-PCS; 2020-05-19)
PROC: 0DB68ZX Excision of Stomach, Via Natural or Artificial Opening Endoscopic, Diagnostic (ICD-10-PCS; principal; 2020-05-19 14:00)
PROC: 0DBP8ZZ Excision of Rectum, Via Natural or Artificial Opening Endoscopic (ICD-10-PCS; 2020-05-19 14:00)
PROC: 5A1D70Z Performance of Urinary Filtration, Intermittent, Less than 6 Hours Per Day (ICD-10-PCS; 2020-05-20)
DX: A41.9 Sepsis, unspecified organism (principal); L89.154 Pressure ulcer of sacral region, stage 4; J69.0 Pneumonitis due to inhalation of food and vomit; R65.21 Severe sepsis with septic shock; E43 Unspecified severe protein-calorie malnutrition; I50.43 Acute on chronic combined systolic (congestive) and diastolic (congestive) heart failure; N18.6 End stage renal disease; E87.1 Hypo-osmolality and hyponatremia; I13.2 Hypertensive heart and chronic kidney disease with heart failure and with stage 5 chronic kidney disease, or end stage renal disease; K62.6 Ulcer of anus and rectum; K92.2 Gastrointestinal hemorrhage, unspecified; D64.9 Anemia, unspecified; E11.22 Type 2 diabetes mellitus with diabetic chronic kidney disease; E87.6 Hypokalemia; I25.10 Atherosclerotic heart disease of native coronary artery without angina pectoris; K22.5 Diverticulum of esophagus, acquired; Z20.828 Contact with and (suspected) exposure to other viral communicable diseases; Z99.2 Dependence on renal dialysis; Z68.28 Body mass index [BMI] 28.0-28.9, adult; Z79.2 Long term (current) use of antibiotics; Z79.82 Long term (current) use of aspirin; Z95.1 Presence of aortocoronary bypass graft
CPT/HCPCS: 36415; 36430; 71045; 74018; 80048; 80053; 82150; 83036; 83605; 83690; 83735; 83880; 84100; 84436; 84439; 84479; 84484; 85025; 85610; 85730; 86677; 86886; 86900; 86901; 86920; 87040; 87081; 88305; 88313; 93005; 96361; 96365; 99291; J1200; J2001; J2250; J2543; J3010; J3480; J7030; J7060; P9016